=== PATIENT | female | born 1995 | race Caucasian/White ===

== ENCOUNTER 2022-07-31 15:54 | Emergency (ER) | payer BC ==
[~2022-07-31] VITALS: Ht 160 cm; Wt 65.8 kg
[2022-07-31] MEDS ORDERED: ALBUTEROL FS 2.5 MG/3 ML VIAL.NEB NEB ONE (16:30)
[2022-07-31] MEDS ORDERED: predniSONE 20 MG TABLET PO ONE (16:30)
[2022-07-31] MEDS ORDERED: IPRATROPIUM NEB FS 0.5 MG/2.5 ML AMPUL.NEB NEB ONE (16:30)
--- NOTE | 2022-07-31 16:30 | NUR ---
came in to ER due of Asthma.
[2022-07-31] MEDS ORDERED: predniSONE 20 MG TABLET ONE (16:33)
[2022-07-31] MEDS ORDERED: IPRATROPIUM NEB FS 0.5 MG/2.5 ML AMPUL.NEB ONE (16:35)
[2022-07-31] MEDS ORDERED: ALBUTEROL FS 2.5 MG/3 ML VIAL.NEB ONE (16:35)
--- NOTE | 2022-07-31 16:45 | NUR ---
hooked to monitor. called RT
--- NOTE | 2022-07-31 16:46 | NUR ---
RT at bed side for breathing treatment
[2022-07-31] MEDS ORDERED: PRED50TA PO (17:15)
[2022-07-31] MEDS ORDERED: ALBU8.5H8 INH (17:15)
[2022-07-31] MEDS ORDERED: FLUT1BLS12 IH (17:15)
--- NOTE | 2022-07-31 17:26 | NUR ---
Patient discharged to home in stable condition. Written and verbal after care instructions given. Patient verbalizes understanding of instruction.
[2022-07-31 17:27] VITALS: BP 120/80
== END 2022-07-31 17:28 | disposition home or self-care (01) ==
LOC: ER 16:04
DX: J45.909 Unspecified asthma, uncomplicated (principal); Z79.51 Long term (current) use of inhaled steroids; Z79.899 Other long term (current) drug therapy
CPT/HCPCS: 99283; 94640; J7512